=== PATIENT | male | born 1945 | race African-American/Black ===

== ENCOUNTER 2022-01-04 12:42 | Outpatient (CLI) | payer OTHER | END 2022-01-04 12:43 | disposition home or self-care (01) | LOC: CSHULT 12:42 | PROVIDERS: ATTEND Chiropractor | DX: I20.9 Angina pectoris, unspecified (principal); I51.7 Cardiomegaly; I51.89 Other ill-defined heart diseases | CPT/HCPCS: 93306 ==

== ENCOUNTER 2022-01-05 09:25 | Outpatient (CLI) | payer OTHER ==
[2022-01-05 20:33] LABS: SARS-CoV-2 PCR by NAA Not Detected (NotDetected)
== END 2022-01-05 09:26 | disposition home or self-care (01) ==
LOC: CSHLAB 09:25
PROVIDERS: ATTEND Internal Medicine Cardiovascular Disease
DX: Z01.812 Encounter for preprocedural laboratory examination (principal); Z20.822 Contact with and (suspected) exposure to COVID-19
CPT/HCPCS: U0003; U0005

== ENCOUNTER 2022-01-10 07:52 | Outpatient (CLI) | payer OTHER | END 2022-01-10 07:53 | disposition home or self-care (01) | LOC: CSHCP 07:52 | PROVIDERS: ATTEND Internal Medicine Cardiovascular Disease | DX: R06.09 Other forms of dyspnea (principal); J44.9 Chronic obstructive pulmonary disease, unspecified | CPT/HCPCS: 94060; 94726; 94729; 94760 ==